=== PATIENT | male | born 1935 | race Two or more races ===

== ENCOUNTER 2017-11-02 18:27 | Emergency (ER) | payer OTHER ==
[~2017-11-02] VITALS: Ht 188 cm; Wt 77.1 kg
[~2017-11-02 18:27] MED LIST: ASA81 MG; CEPHALEXIN500 MG PO; LOTREL 5-20 MG1 CAP
== END 2017-11-02 20:38 | disposition home or self-care (01) ==
LOC: ER 18:27
DX: S51.801A Unspecified open wound of right forearm, initial encounter (principal); W45.8XXA Other foreign body or object entering through skin, initial encounter; Y93.89 Activity, other specified; Y92.018 Other place in single-family (private) house as the place of occurrence of the external cause; Y99.8 Other external cause status

== ENCOUNTER → 2017-11-30 | Emergency (ER) | payer OTHER ==
[~2017-11-30] VITALS: Ht 177.8 cm; Wt 77.1 kg
== END | disposition home or self-care (01) ==
LOC: ER 07:43
DX: B34.9 Viral infection, unspecified (principal); J11.1 Influenza due to unidentified influenza virus with other respiratory manifestations

== ENCOUNTER 2018-11-25 07:39 | Emergency (ER) | payer OTHER ==
[~2018-11-25] VITALS: Ht 175.3 cm; Wt 77.1 kg
== END 2018-11-25 12:05 | disposition home or self-care (01) ==
LOC: ER 07:39
DX: R31.0 Gross hematuria (principal); N39.0 Urinary tract infection, site not specified; B96.89 Other specified bacterial agents as the cause of diseases classified elsewhere

== ENCOUNTER 2019-01-11 18:13 | Outpatient (CLI) | payer OTHER | END 2019-01-11 19:47 | disposition home or self-care (01) | LOC: LAB 18:13 | DX: N39.0 Urinary tract infection, site not specified (principal); B96.89 Other specified bacterial agents as the cause of diseases classified elsewhere ==

== ENCOUNTER 2019-07-09 07:45 | Emergency (ER) | payer OTHER ==
[~2019-07-09] VITALS: Ht 177.8 cm; Wt 76.2 kg
== END 2019-07-09 11:52 | disposition home or self-care (01) ==
LOC: ER 07:45
DX: N20.1 Calculus of ureter (principal)

== ENCOUNTER 2019-07-11 00:50 | Inpatient (IN) | payer OTHER ==
[~2019-07-11] VITALS: Ht 177.8 cm; Wt 76.2 kg
== END 2019-07-17 17:16 | disposition home or self-care (01) | DRG 660 ==
LOC: ER 00:50 → SURH 08:02
PROVIDERS: Urology; ADMIT Internal Medicine
PROC: BW21ZZZ Computerized Tomography (CT Scan) of Abdomen and Pelvis (ICD-10-PCS; 2019-07-11)
PROC: B246ZZZ Ultrasonography of Right and Left Heart (ICD-10-PCS; 2019-07-11)
PROC: BT1FZZZ Fluoroscopy of Left Kidney, Ureter and Bladder (ICD-10-PCS; 2019-07-12)
PROC: 0T778DZ Dilation of Left Ureter with Intraluminal Device, Via Natural or Artificial Opening Endoscopic (ICD-10-PCS; principal; 2019-07-12 16:00)
DX: N13.5 Crossing vessel and stricture of ureter without hydronephrosis (principal); N39.0 Urinary tract infection, site not specified; N20.1 Calculus of ureter; N31.2 Flaccid neuropathic bladder, not elsewhere classified; R33.8 Other retention of urine; I10 Essential (primary) hypertension; R31.0 Gross hematuria; B96.1 Klebsiella pneumoniae [K. pneumoniae] as the cause of diseases classified elsewhere

== ENCOUNTER 2019-08-22 13:18 | Outpatient (CLI) | payer OTHER | END 2019-08-22 15:00 | disposition home or self-care (01) | LOC: LAB 13:18 → RAD 13:18 → LAB 15:00 | DX: N20.0 Calculus of kidney (principal); B96.1 Klebsiella pneumoniae [K. pneumoniae] as the cause of diseases classified elsewhere ==

== ENCOUNTER → 2019-09-05 09:42 | Outpatient (CLI) | payer OTHER ==
[~2019-09-05 09:42] MED LIST changes: +TAMS0.4C
== END | disposition home or self-care (01) ==
LOC: LAB 09:42
DX: N39.0 Urinary tract infection, site not specified (principal); M15.8 Other polyosteoarthritis

== ENCOUNTER 2019-09-05 11:02 | Outpatient (CLI) | payer OTHER ==
[~2019-09-05 11:02] MED LIST changes: -TAMS0.4C
== END 2019-09-05 11:10 | disposition home or self-care (01) ==
LOC: TOM 11:02
DX: N20.0 Calculus of kidney (principal); N39.0 Urinary tract infection, site not specified; R33.8 Other retention of urine

== ENCOUNTER → 2019-09-08 13:45 | Outpatient (CLI) | payer OTHER ==
[~2019-09-08 13:45] MED LIST changes: +TAMS0.4C
== END | disposition home or self-care (01) ==
LOC: LAB 13:45
DX: N20.1 Calculus of ureter (principal)

== ENCOUNTER 2019-09-08 15:11 | Emergency (ER) | payer OTHER ==
[~2019-09-08] VITALS: Ht 177.8 cm; Wt 73.5 kg
[~2019-09-08 15:11] MED LIST changes: -TAMS0.4C
[2019-09-08] MEDS ORDERED: TAMS0.4C (15:44)
== END 2019-09-08 19:19 | disposition home or self-care (01) ==
LOC: ER 15:11
DX: M79.661 Pain in right lower leg (principal)

== ENCOUNTER 2019-09-09 08:40 | Emergency (ER) | payer OTHER ==
[~2019-09-09] VITALS: Ht 177.8 cm; Wt 74.4 kg
[~2019-09-09 08:40] MED LIST changes: +TAMS0.4C
== END 2019-09-09 15:18 | disposition home or self-care (01) ==
LOC: ER 08:40
DX: I87.2 Venous insufficiency (chronic) (peripheral) (principal); R60.0 Localized edema; M79.605 Pain in left leg; M79.604 Pain in right leg

== ENCOUNTER → 2019-11-20 12:00 | Outpatient (CLI) | payer OTHER | END | disposition home or self-care (01) | LOC: LAB 12:00 | DX: D68.8 Other specified coagulation defects (principal); N39.0 Urinary tract infection, site not specified; E78.89 Other lipoprotein metabolism disorders; I10 Essential (primary) hypertension; Z12.11 Encounter for screening for malignant neoplasm of colon; E03.8 Other specified hypothyroidism ==

== ENCOUNTER 2021-12-05 09:33 | Outpatient (CLI) | payer OTHER | END 2021-12-05 09:36 | disposition home or self-care (01) | LOC: TOM 09:33 | PROVIDERS: ATTEND Internal Medicine | DX: R10.84 Generalized abdominal pain (principal) ==

== ENCOUNTER 2023-06-02 13:29 | Emergency (ER) | payer OTHER ==
[~2023-06-02] VITALS: Ht 177.8 cm; Wt 76.7 kg
[2023-06-02] MEDS ORDERED: MUPIROCIN15 GM TOP (15:20)
[2023-06-02] MEDS ORDERED: DUI500 PO (15:20)
== END 2023-06-02 15:37 | disposition home or self-care (01) ==
LOC: ER 13:29
DX: S60.511A Abrasion of right hand, initial encounter (principal); L08.9 Local infection of the skin and subcutaneous tissue, unspecified